=== PATIENT | female | born 1945 | race American Indian/Alaskan Native ===

== ENCOUNTER 2019-05-06 12:37 | Emergency (ER) | payer MEDICARE ==
[2019-05-06] MEDS ORDERED: DUONEB *Not for PRN Use IH ONE (13:33)
[2019-05-06] MEDS ORDERED: DELTASONE PO ONE (13:34)
--- NOTE | 2019-05-06 14:05 | Emergency Department Report ---
ED General Adult HPI - General Chief complaint: Dyspnea/Respdistress Stated complaint: BOB Time Seen by Provider: 05/06/19 13:33 Source: patient, EMS Mode of arrival: Stretcher Limitations: No Limitations - History of Present Illness Initial comments: Patient presents to the emergency department after receiving a colonoscopy for low O2 saturation levels. Patient received propofol for sedation for procedure and after procedure it was noticed that her O2 sats were in the 80s. Patient has a history of lung disease but does not wear oxygen at home. Patient says she feels much better now and denies any chest pain, shortness breath, or headache. -: Sudden Radiation: non-radiation Severity scale (0 -10): 0 Consistency: now resolved Improves with: none Worsens with: none Associated Symptoms: denies other symptoms Treatments Prior to Arrival: none - Related Data Home Medications Medication Instructions Recorded Confirmed Last Taken Lisinopril/Hydrochlorothiazide 1 tab PO QDAY 07/02/15 08/16/15 08/16/15 05:40 [Zestoretic 10-12.5 mg] Previous Rx's Medication Instructions Recorded Last Taken Type amLODIPine [Norvasc] 5 mg PO DAILY #30 tab 08/19/15 Unknown Rx ALBUTEROL Inhaler (OR & NICU) 2 puff IH Q4HR PRN #1 inhalation 05/06/19 Unknown Rx [ProAir HFA Inhaler] predniSONE [Deltasone] 20 mg PO DAILY #15 tablet 05/06/19 Unknown Rx Allergies Allergy/AdvReac Type Severity Reaction Status Date / Time No Known Allergies Allergy Verified 05/06/19 12:46 ED Review of Systems ROS: Stated complaint: BOB Other details as noted in HPI Comment: Unobtainable due to pts medical conditions Constitutional: denies: chills, fever Eyes: denies: eye pain, eye discharge, vision change ENT: denies: ear pain, throat pain Respiratory: denies: cough, shortness of breath, wheezing Cardiovascular: denies: chest pain, palpitations Endocrine: no symptoms reported Gastrointestinal: denies: abdominal pain, nausea, diarrhea Genitourinary: denies: urgency, dysuria, discharge Musculoskeletal: denies: back pain, joint swelling, arthralgia Skin: denies: rash, lesions Neurological: denies: headache, weakness, paresthesias Psychiatric: denies: anxiety, depression Hematological/Lymphatic: denies: easy bleeding, easy bruising ED Past Medical Hx - Past Medical History Hx Hypertension: Yes Hx Renal Disease: No (c/o urinary frequency) Hx Sickle Cell Disease: No Hx Arthritis: Yes (BAKERS CYST L KNEE;) Hx Asthma: No - Surgical History Hx Cholecystectomy: No (BILE BLOCKAGE REPAIRED;) Additional Surgical History: Hysterectomy, colon tumor removal - Social History Smoking Status: Former Smoker - Medications Home Medications: Home Medications Medication Instructions Recorded Confirmed Last Taken Type Lisinopril/Hydrochlorothiazide 1 tab PO QDAY 07/02/15 08/16/15 08/16/15 05:40 History [Zestoretic 10-12.5 mg] amLODIPine [Norvasc] 5 mg PO DAILY #30 tab 08/19/15 Unknown Rx ALBUTEROL Inhaler (OR & NICU) 2 puff IH Q4HR PRN #1 inhalation 05/06/19 Unknown Rx [ProAir HFA Inhaler] predniSONE [Deltasone] 20 mg PO DAILY #15 tablet 05/06/19 Unknown Rx ED Physical Exam - General Limitations: No Limitations General appearance: alert, in no apparent distress - Head Head exam: Present: atraumatic, normocephalic - Eye Eye exam: Present: normal appearance, PERRL, EOMI - ENT ENT exam: Present: mucous membranes moist - Neck Neck exam: Present: normal inspection - Respiratory Respiratory exam: Present: normal lung sounds bilaterally, wheezes. Absent: respiratory distress - Cardiovascular Cardiovascular Exam: Present: regular rate, normal rhythm. Absent: systolic murmur, diastolic murmur, rubs, gallop - GI/Abdominal GI/Abdominal exam: Present: soft, normal bowel sounds. Absent: distended, tenderness - Extremities Exam Extremities exam: Present: normal inspection - Back Exam Back exam: Present: normal inspection - Neurological Exam Neurological exam: Present: alert, oriented X3, CN II-XII intact. Absent: motor sensory deficit - Psychiatric Psychiatric exam: Present: normal affect, normal mood - Skin Skin exam: Present: warm, dry, intact, normal color. Absent: rash ED Course Vital Signs 05/06/19 05/06/19 05/06/19 12:43 12:45 12:46 Temperature 98.2 F Pulse Rate 72 Pulse Rate [ Anterior Bilateral] Respiratory 18 Rate Respiratory Rate [Anterior Bilateral] Blood Pressure 149/92 136/85 O2 Sat by Pulse 95 93 99 Oximetry 05/06/19 05/06/19 05/06/19 13:01 13:15 13:31 Temperature Pulse Rate Pulse Rate [ Anterior Bilateral] Respiratory Rate Respiratory Rate [Anterior Bilateral] Blood Pressure 148/87 148/87 121/94 O2 Sat by Pulse 95 97 96 Oximetry 05/06/19 05/06/19 05/06/19 13:45 14:00 14:15 Temperature Pulse Rate Pulse Rate [ Anterior Bilateral] Respiratory Rate Respiratory Rate [Anterior Bilateral] Blood Pressure 156/93 167/92 163/85 O2 Sat by Pulse 95 93 91 Oximetry 05/06/19 05/06/19 14:28 14:30 Temperature Pulse Rate Pulse Rate [ 66 Anterior Bilateral] Respiratory Rate Respiratory 18 Rate [Anterior Bilateral] Blood Pressure 164/88 O2 Sat by Pulse 100 Oximetry ED Medical Decision Making - Medical Decision Making After ambulation the patient's O2 sats were 96% on room air this was status post steroids and breathing treatment. The patient was observed for 2 hours and O2 sat stayed above 95% Critical care attestation.: If time is entered above; I have spent that time in minutes in the direct care of this critically ill patient, excluding procedure time. ED Disposition Clinical Impression: COPD (chronic obstructive pulmonary disease) Disposition: DC-01 TO HOME OR SELFCARE Is pt being admited?: No Does the pt Need Aspirin: No Condition: Stable Instructions: Chronic Obstructive Pulmonary Disease (ED) Referrals: PRIMARY CARE, [Primary Care Provider] - 3-5 Days [facility] [Provider Group] - 3-5 Days [facility] [Provider Group] - 3-5 Days Time of Disposition: 14:51
[2019-05-06 14:33] VITALS: BP 164/88
== END 2019-05-06 14:57 | disposition home or self-care (01) ==
LOC: ED 12:37
DX: J44.9 Chronic obstructive pulmonary disease, unspecified (principal); I10 Essential (primary) hypertension; M17.12 Unilateral primary osteoarthritis, left knee; Z90.710 Acquired absence of both cervix and uterus; Z85.038 Personal history of other malignant neoplasm of large intestine; Z79.899 Other long term (current) drug therapy
CPT/HCPCS: 94640; 99283; J7512

== ENCOUNTER 2019-09-15 18:04 | Emergency (ER) | payer MEDICARE ==
[2019-09-15] MEDS ORDERED: DUONEB *Not for PRN Use IH ONE (20:07)
[2019-09-15] MEDS ORDERED: SOLU-Medrol IM ONE (20:07)
[2019-09-15] MEDS ORDERED: SOLU-Medrol IV ONE (20:10)
--- NOTE | 2019-09-15 20:34 | Emergency Department Report ---
ED Shortness of Breath HPI - General Chief Complaint: Dyspnea/Respdistress Stated Complaint: SOB Time Seen by Provider: 09/15/19 18:37 Source: patient, EMS Mode of arrival: Stretcher Limitations: No Limitations - History of Present Illness Initial Comments: 74-year-old -[place] female with a past medical history of COPD and hypertension. Patient comes in reporting mild shortness of breathing but more concerned that she needs a refill on her nebulizer treatments. Patient denies any chest pain fever nausea vomiting or abdominal pain. Patient reports no hospitalizations for her COPD and has never been intubated. Patient is currently followed by Adrienne Spear. Patient has no known drug allergies. Patient came in by EMS. States that her prescription was called in but pharmacy did not have [place] would not get it for the next day. MD Complaint: shortness of breath Onset/Timin -: days(s) Pain Scale: 0 Improves With: bronchodilators Worsens With: nothing Known History Of: COPD Associated Symptoms: denies other symptoms - Related Data Home Medications Medication Instructions Recorded Confirmed Last Taken Lisinopril/Hydrochlorothiazide 1 tab PO QDAY 07/02/15 08/16/15 08/16/15 05:40 [Zestoretic 10-12.5 mg] Previous Rx's Medication Instructions Recorded Last Taken Type amLODIPine [Norvasc] 5 mg PO DAILY #30 tab 08/19/15 Unknown Rx ALBUTEROL Inhaler (OR & NICU) 2 puff IH Q4HR PRN #1 inhalation 05/06/19 Unknown Rx [ProAir HFA Inhaler] predniSONE [Deltasone] 20 mg PO DAILY #15 tablet 05/06/19 Unknown Rx Ipratropium/Albuterol Sulfate 1 ampul IH Q6HR PRN #1 box 09/15/19 Unknown Rx [DUONEB *Not for PRN Use*] Allergies Allergy/AdvReac Type Severity Reaction Status Date / Time No Known Allergies Allergy Verified 05/06/19 12:46 ED Review of Systems ROS: Stated complaint: SOB Other details as noted in HPI Comment: All other systems reviewed and negative ED Past Medical Hx - Past Medical History Previous Medical History?: Yes Hx Hypertension: Yes Hx Renal Disease: No (c/o urinary frequency) Hx Sickle Cell Disease: No Hx Arthritis: Yes (BAKERS CYST L KNEE;) Hx Asthma: No - Surgical History Past Surgical History?: Yes Hx Cholecystectomy: No (BILE BLOCKAGE REPAIRED;) Additional Surgical History: Hysterectomy, colon tumor removal - Social History Smoking Status: Former Smoker Substance Use Type: None - Medications Home Medications: Home Medications Medication Instructions Recorded Confirmed Last Taken Type Lisinopril/Hydrochlorothiazide 1 tab PO QDAY 07/02/15 08/16/15 08/16/15 05:40 History [Zestoretic 10-12.5 mg] amLODIPine [Norvasc] 5 mg PO DAILY #30 tab 08/19/15 Unknown Rx ALBUTEROL Inhaler (OR & NICU) 2 puff IH Q4HR PRN #1 inhalation 05/06/19 Unknown Rx [ProAir HFA Inhaler] predniSONE [Deltasone] 20 mg PO DAILY #15 tablet 05/06/19 Unknown Rx Ipratropium/Albuterol Sulfate 1 ampul IH Q6HR PRN #1 box 09/15/19 Unknown Rx [DUONEB *Not for PRN Use*] ED Physical Exam - General Limitations: No Limitations General appearance: alert, in no apparent distress - Head Head exam: Present: atraumatic, normocephalic - Eye Eye exam: Present: normal appearance - ENT ENT exam: Present: mucous membranes moist - Neck Neck exam: Present: normal inspection, full ROM - Respiratory Respiratory exam: Present: rhonchi - Cardiovascular Cardiovascular Exam: Present: regular rate, normal rhythm. Absent: systolic murmur, diastolic murmur, rubs, gallop - GI/Abdominal GI/Abdominal exam: Present: soft, normal bowel sounds - Extremities Exam Extremities exam: Present: normal inspection, full ROM - Back Exam Back exam: Present: normal inspection - Neurological Exam Neurological exam: Present: alert, oriented X3 - Psychiatric Psychiatric exam: Present: normal affect, normal mood - Skin Skin exam: Present: warm, dry, intact, normal color. Absent: rash ED Course Vital Signs 09/15/19 09/15/19 09/15/19 18:20 18:22 18:30 Temperature 97.7 F Pulse Rate 81 80 80 Pulse Rate [ Anterior] Respiratory 22 20 23 Rate Respiratory Rate [Anterior] Blood Pressure 146/60 146/60 O2 Sat by Pulse 97 97 Oximetry 09/15/19 09/15/19 09/15/19 18:46 19:09 19:15 Temperature Pulse Rate 79 78 81 Pulse Rate [ Anterior] Respiratory 21 14 21 Rate Respiratory Rate [Anterior] Blood Pressure 146/77 O2 Sat by Pulse 89 93 99 Oximetry 09/15/19 09/15/19 09/15/19 19:31 19:45 20:00 Temperature Pulse Rate 76 77 75 Pulse Rate [ Anterior] Respiratory 21 19 24 Rate Respiratory Rate [Anterior] Blood Pressure 143/77 143/77 158/78 O2 Sat by Pulse 100 97 99 Oximetry 09/15/19 09/15/19 09/15/19 20:15 20:30 20:45 Temperature Pulse Rate 76 76 77 Pulse Rate [ Anterior] Respiratory 19 17 19 Rate Respiratory Rate [Anterior] Blood Pressure 158/78 154/83 154/83 O2 Sat by Pulse 97 98 96 Oximetry 09/15/19 09/15/19 09/15/19 21:08 21:16 21:32 Temperature Pulse Rate Pulse Rate [ Anterior] Respiratory Rate Respiratory Rate [Anterior] Blood Pressure 154/83 154/83 154/83 O2 Sat by Pulse 88 88 Oximetry 09/15/19 21:41 Temperature Pulse Rate Pulse Rate [ 88 Anterior] Respiratory Rate Respiratory 18 Rate [Anterior] Blood Pressure O2 Sat by Pulse Oximetry ED Medical Decision Making - Radiology Data Radiology results: report reviewed Patient: CHELSI ENGLISH MR#: [id number] : 1945 Acct:[id number] Age/Sex: 74 / F ADM Date: 09/15/19 Loc: ED Attending Dr: Ordering Physician: PRISCILA HOBSON Date of Service: 09/15/19 Procedure(s): XR chest 1V ap Accession Number(s): [id number] cc: PRISCILA HOBSON Fluoro Time In Minutes: CHEST 1 VIEW INDICATION / CLINICAL INFORMATION: sob. COMPARISON: None available FINDINGS: SUPPORT DEVICES: None. HEART / MEDIASTINUM: No acute abnormality LUNGS / PLEURA: There is mild venous congestion. There is mild perihilar edema.. No pneumothorax. ADDITIONAL FINDINGS: No significant additional findings. IMPRESSION: 1. There is mild perihilar edema and mild venous congestion. Signer Name: Renan Urias MD Signed: 09/15/2019 10:05 PM Workstation Name: [id number] Transcribed By: Dictated By: Renan Urias MD Electronically Authenticated By: Renan Urias MD Signed Date/Time: 09/15/192204 DD/ 03 TD/TT: - Medical Decision Making 74-year-old -[place] female with a past medical history of COPD and hypertension. Patient comes in reporting mild shortness of breathing but more concerned that she needs a refill on her nebulizer treatments. Patient denies any chest pain fever nausea vomiting or abdominal pain. Patient reports no hospitalizations for her COPD and has never been intubated. Patient is currently followed by Adrienne Spear. Patient has no known drug allergies. Patient came in by EMS. States that her prescription was called in but pharmacy did not have [place] would not get it for the next day. Patient has been ordered to a nebulizer. Magnesium Solu-Medrol chest x-ray. Critical care attestation.: If time is entered above; I have spent that time in minutes in the direct care of this critically ill patient, excluding procedure time. ED Disposition Clinical Impression: COPD exacerbation Disposition: DC-01 TO HOME OR SELFCARE Is pt being admited?: No Does the pt Need Aspirin: No Condition: Stable Instructions: Chronic Obstructive Pulmonary Disease (ED) Additional Instructions: Please continue giving your nebs as needed for shortness of breath and cough. Please follow-up which her primary care provider in the next 2-3 days. Prescriptions: Ipratropium/Albuterol Sulfate [DUONEB *Not for PRN Use*] 1 ampul IH Q6HR PRN #1 box PRN Reason: Shortness Of Breath Forms: Accompanied Note
--- NOTE | 2019-09-15 21:14 | Event Note ---
Date of service: 09/15/19 Face to Face: This is a pleasant 74-year-old female, typically follows with gen care Presents with EMS and of concern that she may return out of her inhalants medicine. She has a history of COPD. She does not have physical pain. She denies DVT and pulmonary embolism risk factors. Her primary complaint is acute on chronic shortness of breath, now improved. She is very faint rhonchi. She is in no acute distress. We will treat her symptoms, and discharged with refill on her prescription medications. She states she is reliable to follow-up with her family. Her x-ray the chest is fairly unremarkable, and her EKG today is abnormal, but unchanged from prior EKG from 05/01/2016 Vital Signs 09/15/19 09/15/19 09/15/19 18:20 18:22 18:30 Temperature 97.7 F Pulse Rate 81 80 80 Respiratory 22 20 23 Rate Blood Pressure 146/60 146/60 O2 Sat by Pulse 97 97 Oximetry 09/15/19 09/15/19 09/15/19 18:46 19:09 19:15 Temperature Pulse Rate 79 78 81 Respiratory 21 14 21 Rate Blood Pressure 146/77 O2 Sat by Pulse 89 93 99 Oximetry 09/15/19 09/15/19 09/15/19 19:31 19:45 20:00 Temperature Pulse Rate 76 77 75 Respiratory 21 19 24 Rate Blood Pressure 143/77 143/77 158/78 O2 Sat by Pulse 100 97 99 Oximetry
[2019-09-15 21:39] VITALS: BP 154/83
--- NOTE | 2019-09-15 22:10 | XRay Report ---
CHEST 1 VIEW INDICATION / CLINICAL INFORMATION: sob. COMPARISON: None available FINDINGS: SUPPORT DEVICES: None. HEART / MEDIASTINUM: No acute abnormality LUNGS / PLEURA: There is mild venous congestion. There is mild perihilar edema.. No pneumothorax. ADDITIONAL FINDINGS: No significant additional findings. IMPRESSION: 1. There is mild perihilar edema and mild venous congestion. Signer Name: Renan Urias MD Signed: 09/15/2019 10:05 PM Workstation Name: [id number]
== END 2019-09-15 23:18 | disposition home or self-care (01) ==
LOC: ED 18:04
DX: J44.1 Chronic obstructive pulmonary disease with (acute) exacerbation (principal); I10 Essential (primary) hypertension; M19.90 Unspecified osteoarthritis, unspecified site; Z90.710 Acquired absence of both cervix and uterus; Z79.899 Other long term (current) drug therapy
CPT/HCPCS: 71045; 93005; 93010; 94640; 96374; 99284; J2930; 94644

== ENCOUNTER 2021-09-29 08:04 | Emergency (ER) | payer MEDICARE ==
--- NOTE | 2021-09-29 09:08 | Emergency Department Report ---
ED General Adult HPI - General Chief complaint: Cardiac Arrest/CPR Stated complaint: CARDIAC ARREST Time Seen by Provider: 09/29/21 08:13 Source: EMS Mode of arrival: Stretcher Limitations: Other - History of Present Illness Initial comments: The patient presents to the emergency department the chief complaint of cardiac arrest. Per EMS last time the patient was seen normal was at 8 PM last night. Upon arrival the patient was asystole and ACLS protocol was initiated. The patient was intubated. Patient was given ACLS medications. Patient arrived to emergency department receiving for chest compressions and without cardiac activity. - Related Data Home Medications Medication Instructions Recorded Confirmed Last Taken Lisinopril/Hydrochlorothiazide 1 tab PO QDAY 07/02/15 08/16/15 08/16/15 05:40 [Zestoretic 10-12.5 mg] Previous Rx's Medication Instructions Recorded Last Taken Type amLODIPine 5 mg PO DAILY #30 tab 08/19/15 Unknown Rx Albuterol Mdi (or & Nicu Only) 2 puff IH Q4HR PRN #1 inhalation 05/06/19 Unknown Rx [ProAir HFA Inhaler] predniSONE [Deltasone] 20 mg PO DAILY #15 tablet 05/06/19 Unknown Rx Ipratropium/Albuterol Sulfate 1 ampul IH Q6HR PRN #1 box 09/15/19 Unknown Rx [DUONEB *Not for PRN Use*] Allergies Allergy/AdvReac Type Severity Reaction Status Date / Time No Known Allergies Allergy Verified 05/06/19 12:46 ED Review of Systems ROS: Stated complaint: CARDIAC ARREST Other details as noted in HPI Comment: Unobtainable due to pts medical conditions ED Past Medical Hx - Past Medical History Hx Hypertension: Yes Hx Renal Disease: No (c/o urinary frequency) Hx Sickle Cell Disease: No Hx Arthritis: Yes (BAKERS CYST L KNEE;) Hx Asthma: No - Surgical History Hx Cholecystectomy: No (BILE BLOCKAGE REPAIRED;) Additional Surgical History: Hysterectomy, colon tumor removal - Social History Smoking Status: Former Smoker Substance Use Type: None - Medications Home Medications: Home Medications Medication Instructions Recorded Confirmed Last Taken Type Lisinopril/Hydrochlorothiazide 1 tab PO QDAY 07/02/15 08/16/15 08/16/15 05:40 History [Zestoretic 10-12.5 mg] amLODIPine 5 mg PO DAILY #30 tab 08/19/15 Unknown Rx Albuterol Mdi (or & Nicu Only) 2 puff IH Q4HR PRN #1 inhalation 05/06/19 Unknown Rx [ProAir HFA Inhaler] predniSONE [Deltasone] 20 mg PO DAILY #15 tablet 05/06/19 Unknown Rx Ipratropium/Albuterol Sulfate 1 ampul IH Q6HR PRN #1 box 09/15/19 Unknown Rx [DUONEB *Not for PRN Use*] ED Physical Exam - General Limitations: Other General appearance: other (intubated) - Head Head exam: Present: atraumatic, normocephalic - Eye Eye exam: Present: other (No corneal reflex) - ENT ENT exam: Present: mucous membranes dry, other (Tongue is pale and without a pink hue) - Respiratory Respiratory exam: Present: other (Breath sounds bilaterally with bagging but otherwise without breath sounds) - Cardiovascular Cardiovascular Exam: Present: other (Asystole) - GI/Abdominal GI/Abdominal exam: Present: soft. Absent: distended - Extremities Exam Extremities exam: Present: other (Cold to touch) - Neurological Exam Neurological exam: Present: other (GCS: 3T) - Psychiatric Psychiatric exam: Present: other (Not able to assess due to the patient's condition) - Skin Skin exam: Present: dry, intact, other (Cold to touch) ED Medical Decision Making - Medical Decision Making The patient presents to emergency department for cardiac arrest receiving chest compressions ACLS protocol continued Time of 8:04 AM Critical care attestation.: If time is entered above; I have spent that time in minutes in the direct care of this critically ill patient, excluding procedure time. ED Disposition Clinical Impression: Cardiac arrest Disposition: 01 HOME / SELF CARE / HOMELESS Is pt being admited?: No Does the pt Need Aspirin: No Condition: Stable Referrals: PRIMARY CARE,MD [Primary Care Provider] - 3-5 Days
== END 2021-09-29 09:00 | disposition home or self-care (01) ==
LOC: ED 08:04
DX: I46.9 Cardiac arrest, cause unspecified (principal); I10 Essential (primary) hypertension; Z87.891 Personal history of nicotine dependence
CPT/HCPCS: 92950; 99285